=== PATIENT | female | born 1980 | race Hispanic/Latino ===

== ENCOUNTER 2023-06-02 13:53 | Emergency (ER) | payer OTHER ==
[2023-06-02 14:47] LABS: Bilirubin Neg (Negative); Blood, Urine 250 (Negative); Clarity Clear (Clear); Glucose, Urine (Dipstick) Normal (Negative); Ketone, Urine Negative (Negative); Leukocyte 100 (Negative); Nitrite Negative (Negative); Protein, Urine (Dipstick) 15 mg/dl (Neg-Trace); Urobilinogen Normal mg/dL (Less than 2); pH, Urine 6.5 (5.0-9.0)
[2023-06-02 14:54] LABS: Bacteria/HPF 1+ HPF (None Seen); CAUTI Indications for Culture Pregnancy; RBC/HPF 0-3 HPF (0-3); Squamous Epithelial 0-3 HPF (0-3)
[2023-06-02 14:55] LABS: Urine Culture Reflex Yes Yes
[2023-06-02 15:01] LABS: #Monocytes 0.6 10x3/uL (0.0-1.1); #Neutrophils 8.1 10x3/uL (1.5-8.4); %Basophils 0.3 % (0.0-2.0); %Eosinophils 0.3 % (0.0-6.0); %Lymphocytes 15.4 % (18.0-47.0); %Monocytes 5.7 % (0.0-10.0); %Neutrophils 77.7 % (40.0-75.0); Hematocrit 28.9 % (34.9-44.5); Hemoglobin 9.1 g/dL (12.0-15.5); Mean Corpuscular HGB CONC 31.5 g/dL (32.0-36.0); Mean Corpuscular Hemoglobin 22.2 pg (27.0-33.0); Mean Corpuscular Volume 70.5 fl (81.6-98.3); Mean Platelet Volume 9.2 fl (7.4-10.4); Platelet Count 345 10x3/uL (150-450); RBC Distribution Width 17.1 % (11.5-14.5); White Blood Cell (WBC) Count 10.4 10x3/uL (3.5-10.5)
[2023-06-02 15:18] LABS: ALT (SGPT) 20 U/L (8-55); AST (SGOT) 18 U/L (5-34); Albumin 4.3 g/dL (3.5-5.0); Alkaline Phosphatase 66 U/L (40-110); Anion Gap 14 mmol/L (10-20); Anisocytosis SLIGHT = 6-15 cells (100X) (0-5/hpf); BUN (Urea Nitrogen) 6 mg/dL (7.0-18.7); Bilirubin, Total 0.5 mg/dL (0.2-1.2); Calc. Creatinine Clearance 0 mL/min (70-130); Calcium 9.1 mg/dL (7.8-10.44); Carbon Dioxide 19 mmol/L (22-29); Chloride 106 mmol/L (98-107); Estimated GFR 112; Globulin 3.8 g/dL (2.4-3.5); Glucose 95 mg/dL (70-105); Hypochromia SLIGHT = 6-15 cells (100X) (0-5/hpf); Microcytosis MODERATE=15-30 cells (100X) (0-5/hpf); Potassium 3.6 mmol/L (3.5-5.1); Protein, Total 8.1 g/dL (6.0-8.3); Sodium 135 mmol/L (136-145)
[2023-06-02 15:19] LABS: Platelet Adequacy Comment Appears Adequate; Platelet Clumps SLIGHT; Stomatocytes SLIGHT = 2-5 cells (100X) (0-1/hpf)
== END 2023-06-02 17:19 | disposition home or self-care (01) ==
LOC: CSHERS 13:53
DX: O20.0 Threatened abortion (principal); O99.891 Other specified diseases and conditions complicating pregnancy; R82.71 Bacteriuria; Z3A.08 8 weeks gestation of pregnancy
CPT/HCPCS: 76801; 80053; 81001; 84702; 85025; 86900; 86901; 87086; 90384; 96372

== ENCOUNTER 2023-12-29 19:40 | Inpatient (IN) | payer OTHER ==
[2023-12-29 20:06] VITALS: BMI 31.1
[2023-12-29] MEDS ORDERED: Promethazine HCl 25 MG/ML VIAL IM PRN (20:29)
[2023-12-29] MEDS ORDERED: hydrALAZINE 20 MG/ML VIAL SLOW IVP PRN ×3 (20:29→22:39)
[2023-12-29] MEDS ORDERED: Misoprostol 200 MCG TAB PR PRN (20:29)
[2023-12-29] MEDS ORDERED: Ondansetron PF 4 MG/2 ML Vial IVP PRN (20:29)
[2023-12-29] MEDS ORDERED: Tranexamic Acid 1,000 MG/10 ML VIAL IVP PRN (20:29)
[2023-12-29] MEDS ORDERED: Carboprost 250 MCG/ML AMP IM PRN (20:29)
[2023-12-29] MEDS ORDERED: Lactated Ringer's 1,000 ML IV SCH (20:30)
[2023-12-29 21:05] LABS: Hematocrit 33.6 % (34.9-44.5); Hemoglobin 11.7 g/dL (12.0-15.5); Mean Corpuscular HGB CONC 34.8 g/dL (32.0-36.0); Mean Corpuscular Volume 86.2 fL (81.6-98.3); Mean Platelet Volume 9.8 fL (7.4-10.4); Platelet Count 263 10x3/uL (150-450); RBC Distribution Width 12.7 % (11.5-14.5); White Blood Cell (WBC) Count 7.8 10x3/uL (3.5-10.5)
[2023-12-29] MEDS: Oxytocin 30 units/NS 500 ML 500 ML IV SCH (22:27)
[2023-12-29] MEDS: Lidocaine 1% (PF) 30 ML VIAL SC PRN (22:27)
[2023-12-29] MEDS: Methylergonovine 0.2 MG/ML VIAL IM PRN (22:35)
[2023-12-29] MEDS ORDERED: Milk Of Magnesia 30 ML UDCUP PO PRN (22:37)
[2023-12-29] MEDS ORDERED: Boostrix 0.5 ML (Tdap) VIAL (>/=7 yrs of age) IM ONE (22:37)
[2023-12-29] MEDS ORDERED: Bisacodyl 10 MG SUPP PR PRN (22:37)
[2023-12-29] MEDS ORDERED: Zolpidem Tartrate 5 MG TAB PO PRN (22:39)
[2023-12-29] MEDS ORDERED: Lanolin Ointment 7 GM TUBE TOP PRN (22:39)
[2023-12-29] MEDS: Ibuprofen 800 MG TAB PO SCH ×2 (23:15)
[2023-12-29 23:50] LABS: Syphilis Antibody Nonreactive (Nonreactive); Syphilis Antibody Index 0.06 S/CO (<1.00 Non-Reactive)
[2023-12-29] MEDS: HYDROcodone/Acetaminophen 5/325 mg Tablet PO PRN (23:50)
[2023-12-29 23:52] LABS: Hep B Surf Ag - L&D Non-Reactive S/CO (NonReactive)
[2023-12-30] MEDS: Benzocaine-Menthol 82.5 ML CAN TOP PRN (01:35)
[2023-12-30 04:02] LABS: Hematocrit 30.2 % (34.9-44.5); Hemoglobin 10.3 g/dL (12.0-15.5); Mean Corpuscular HGB CONC 34.1 g/dL (32.0-36.0); Mean Corpuscular Hemoglobin 29.8 pg (27.0-33.0); Mean Corpuscular Volume 87.3 fL (81.6-98.3); Mean Platelet Volume 9.5 fL (7.4-10.4); Platelet Count 216 10x3/uL (150-450); RBC Distribution Width 12.5 % (11.5-14.5); Red Blood Cell (RBC) Count 3.46 10x6/uL (3.90-5.03); White Blood Cell (WBC) Count 13.5 10x3/uL (3.5-10.5)
[2023-12-30] MEDS: Docusate 100 MG CAP PO SCH (08:19)
[2023-12-30] MEDS: Prenatal Vitamin 1 TAB PO SCH (08:19)
[2023-12-30] MEDS: Ferrous Sulfate 325 MG TAB PO SCH (15:40)
[2023-12-31 07:24] VITALS: BP 104/59; TEMP 97.6
== END 2023-12-31 11:45 | disposition home or self-care (01) | DRG 807 ==
LOC: CSHLD/OP 19:40 → CSHLD 20:12 → CSHPP 12-30 00:49
PROVIDERS: ADMIT Obstetrics & Gynecology; ATTEND Obstetrics & Gynecology
PROC: 10E0XZZ Delivery of Products of Conception, External Approach (ICD-10-PCS; principal; 2023-12-29)
PROC: 0KQM0ZZ Repair Perineum Muscle, Open Approach (ICD-10-PCS; 2023-12-29)
DX: O99.02 Anemia complicating childbirth (principal); Z37.0 Single live birth; Z3A.38 38 weeks gestation of pregnancy; D64.9 Anemia, unspecified; O70.1 Second degree perineal laceration during delivery; N85.8 Other specified noninflammatory disorders of uterus
CPT/HCPCS: 36415; 85027; 85461; 86780; 86850; 86900; 86901; 87340; 90384; 96372; 99285; J2001; J2210; J2590